=== PATIENT | male | born 1995 | race Caucasian/White ===

== ENCOUNTER 2020-05-29 20:52 | Emergency (ER) | payer OTHER ==
[2020-05-29] MEDS ORDERED: Diphtheria,Pertussis(Acell),Tetanus Vaccine 0.5 ML Syringe IM ONE (21:20)
[2020-05-29] MEDS ORDERED: Cephalexin 500 MG Cap PO ONE (21:29)
[2020-05-29] MEDS ORDERED: Ibuprofen 600 MG Tab PO ONE (21:29)
[2020-05-29] MEDS ORDERED: traMADol 50 MG Tab PO ONE (21:29)
--- NOTE | 2020-05-29 21:40 | CR ---
Indication: Pain, trauma Technique: Three views left ring finger Comparison: None Findings: There is a displaced and severely comminuted fracture of the distal tuft of the left ring finger distal phalanx seated soft tissue swelling. No intra-articular involvement. Impression: Crush injury to the distal tuft of the ring finger distal phalanx with displaced and severely comminuted fracture. Dictated by Eric Alcazar MD @ May 29 2020 9:38PM Signed by Dr. Eric Alcazar @ May 29 2020 9:39PM
--- NOTE | 2020-05-29 22:04 | EDM.PDOC ---
ED HPI GENERAL MEDICAL PROBLEM - General Chief Complaint: Upper Extremity Injury/Pain Stated Complaint: LT HAND INJURY Time Seen by Provider: 05/29/20 21:02 - History of Present Illness INITIAL COMMENTS - FREE TEXT/NARRATIVE: HISTORY AND PHYSICAL: History of present illness: This is a 24-year-old gentleman who presents ER today secondary to a crush injury to his left ring finger while he was at work. Patient is right-hand do minant. Patient's tetanus status is not up-to-date. Patient denies any other symptomatology or trauma. Patient reports his pain is restricted to the distal phalanx of his left ring finger. Patient denies any history of hypertension, diabetes, liver, lung, kidney problems. Patient denies any tobacco alcohol or drugs. Patient has allergy to penicillin. Review of systems: As per history of present illness and below otherwise all systems reviewed and negative. Past medical history: As per history of present illness and as reviewed below otherwise noncontributory. Surgical history: As per history of present illness and as reviewed below otherwise noncontributory. Social history: No reported history of drug or alcohol abuse. Family history: As per history of present illness and as reviewed below otherwise noncontributory. Physical exam: Constitutional: Patient is oriented to person, place, and time. Appears well- developed and well-nourished. No distress. HEENT: Moist mucous membranes Head: Normocephalic and atraumatic Eyes: Right eye exhibits no discharge. Left eye exhibits no discharge. No scleral icterus Neck: Normal range of motion. No tracheal deviation present. Cardiovascular: Normal rate and regular rhythm. Pulmonary: Effort normal, no respiratory distress. Abdominal: No distention Musculoskeletal: Normal range of motion Neurologic: Alert and oriented to person, place and time. Skin: Payne, warm and dry. Psychiatric: Normal mood and affect. Behavior is normal. Judgment and thought content normal. Nursing note and vital signs have been reviewed Patient's ER physical exam is significant for a laceration through his distal phalanx of his left ring finger that appears to involve the nailbed. Patient's nailbed appears to be mobile. Patient has tenderness and crepitance to the bone at his distal tuft. Patient is otherwise neurovascularly intact. Patient has isolated flexion and extension of his distal phalanx. Upon partial removal of his fingernail, a 2 cm laceration was identified horizontally through the nailbed. This patient was seen and evaluated during the 2019 SARS-CoV-2 novel coronavirus pandemic period. Community viral transmission is ongoing at time of this encounter and the emergency department is operating under pandemic response procedures. Diagnostics: X-ray left ring finger: There is a displaced and severely comminuted fracture of the distal tuft of the left ring finger distal phalanx seated soft tissue swelling. No intra-articular involvement. Therapeutics: Tdap 0.5 IM Ibuprofen 600 mg p.o. Ultram 50 mg p.o. Keflex 500 mg p.o. Sutured in the ED. Please see suture note Case discussed with Dr. Kapadia from orthopedics and he is agreed to assist us with outpatient follow-up with this patient. Assessment and plan: This is a 24-year-old gentleman who presents ER today with a laceration to his left ring finger with a open comminuted fracture of the distal tuft. Wound was sutured here in the ED. Patient will need a wound check in [address] Kapadia. Sutures will need to come out in 7 to 10 days. Patient be placed in aluminum foam splint for immobilization. Patient be discharged home with ibuprofen and Ultram for pain. Patient was given a prescription for Keflex 500 mg 3 times daily for 5 days. DME note: A AlumaFoam finger splint is being applied to patient's left ring finger secondary to fracture of the distal tuft. The splint will assist with immobilization to help with rapid and appropriate healing of the fracture. Reassessment at the time of disposition demonstrates that the patient is in no acute distress. The patient has remained stable throughout the entire ED visit and is without objective evidence for acute process requiring urgent intervention or hospitalization. The patient is stable for discharge, counseling is provided as documented above, discussed symptomatic treatment and specific conditions for return. I have spoken with the patient/caregiver and discussed todays findings, in addition to providing specific details for the plan of care. Questions are answered and there is agreement with the plan. Definitive disposition and diagnosis as appropriate pending reevaluation and review of above. L index finger Pain Score (Numeric/FACES): 5 - Related Data Allergies Allergy/AdvReac Type Severity Reaction Status Date / Time Penicillins Allergy Other Verified 05/29/20 21:07 Home Meds: Home Meds Ibuprofen 600 mg PO Q6HR PRN #30 tablet 05/29/20 [Rx] cephALEXin [Keflex] 500 mg PO Q8H #15 cap 05/29/20 [Rx] traMADol [Ultram] 50 mg PO Q6H PRN #12 tab 05/29/20 [Rx] Past Medical History Other Genitourinary History: cysts on kidneys - Infectious Disease History Infectious Disease History: Reports: Chicken Pox Social & Family History - Family History Family Medical History: No Pertinent Family History - Caffeine Use Caffeine Use: Reports: Soda - Recreational Drug Use Recreational Drug Use: No Review of Systems - Review of Systems Review Of Systems: See Below ED EXAM, GENERAL - Physical Exam Exam: See Below ED TRAUMA EXTREMITY PROCEDURES - Laceration/Wound Repair Left Digit - 4th (Ring) Lac/Wound Length In cm: 4 Appearance: Irregular Distal NVT: Neuro & Vascular Intact Anesthetic Type: Local Local Anesthesia - Lidocaine (Xylocaine): 1% Plain Local Anesthetic Volume: 2cc Skin Prep: Chlorhexidine (Hibiciens), Saline Saline Irrigation (cc's): 1,000 Exploration/Debridement/Repair: Wound Explored, In a Bloodless Field, Explored to Base, Minimal Debridement, No Foreign Material Found, Wound Margins Revised Closed With: Sutures Suture Size: 4-0 # of Sutures: 5 Suture Type: Prolene, Interrupted, Simple Progress/Comments: The distal aspect of the fingernail was removed however the proximal aspect into the cuticle was maintained. The laceration to the nailbed was visualized and sutures were placed through the fingernail and into the nailbed. Course - Vital Signs Last Recorded V/S: Last Vital Signs Temp 98.5 F 05/29/20 21:04 Pulse 70 05/29/20 21:04 Resp 18 05/29/20 21:04 BP 150/87 H 05/29/20 21:04 Pulse Ox 99 05/29/20 21:04 - Orders/Labs/Meds Orders: Active Orders 24 hr Category Date Time Status Vaccines to be Administered [RC] PER UNIT ROUTINE Care 05/29/20 21:20 Active Meds: Medications Discontinued Medications Generic Name Dose Route Start Last Admin Trade Name Freq PRN Reason Stop Dose Admin Cephalexin 500 mg 05/29/20 21:29 05/29/20 21:38 Keflex PO 05/29/20 21:30 500 mg ONETIME ONE Administration Diphtheria/Tetanus/Acell Pertussis 0.5 ml 05/29/20 21:20 05/29/20 21:26 Boostrix IM 05/29/20 21:21 0.5 ml .ONCE ONE Administration Ibuprofen 600 mg 05/29/20 21:29 05/29/20 21:38 Motrin PO 05/29/20 21:30 600 mg ONETIME ONE Administration Lidocaine HCl 5 ml 05/29/20 21:29 05/29/20 21:39 Xylocaine-Mpf 1% INJECT 05/29/20 21:30 5 ml ONETIME ONE Administration Tramadol HCl 50 mg 05/29/20 21:29 05/29/20 21:38 Ultram PO 05/29/20 21:30 50 mg ONETIME ONE Administration Departure - Departure Time of Disposition: 22:04 Disposition: Home, Self-Care 01 Condition: Good Clinical Impression: Open fracture of tuft of distal phalanx of finger Nailbed laceration, finger Qualifiers: Encounter type: initial encounter Qualified Code(s): S61.319A - Laceration without foreign body of unspecified finger with damage to nail, initial encounter - Discharge Information Instructions: Laceration Care, Adult, Finger Fracture, Adult, [id number] Referrals: Davy Blackwood MD [Primary Care Provider] - Additional Instructions: You were seen and evaluated in the ER today secondary to a fracture and laceration of your left ring finger at the nail bed. Your laceration has been sutured in the ED. You will need to have a wound check in 2 days and sutures will be need to be removed in 7 to 10 days. We have talked to Dr. Kapadia our orthopedic surgeon on-call and he will assist with care of the fracture element. You may return to the ER for assistance with removal of your sutures in 7 to 10 days. You were placed in an aluminum foam finger splint that should remain on. This will help with healing of the fracture as well as sutures. You will be given a prescription for Keflex 500 mg 3 times a day for 5 days, ibuprofen and Ultram for pain. You have received a tetanus shot today in the ED. [facility] [address], [address] [place] [address] The following information is given to patients seen in the emergency department who are being discharged to home. This information is to outline your options for follow-up care. We provide all patients seen in our emergency department with a follow-up referral. The need for follow-up, as well as the timing and circumstances, are variable depending upon the specifics of your emergency department visit. If you don't have a primary care physician on staff, we will provide you with a referral. We always advise you to contact your personal physician following an emergency department visit to inform them of the circumstance of the visit and for follow-up with them and/or the need for any referrals to a consulting specialist. The emergency department will also refer you to a specialist when appropriate. This referral assures that you have the opportunity for follow-up care with a specialist. All of these measure are taken in an effort to provide you with optimal care, which includes your follow-up. Under all circumstances we always encourage you to contact your private physician who remains a resource for coordinating your care. When calling for follow-up care, please make the office aware that this follow-up is from your recent emergency room visit. If for any reason you are refused follow-up, please contact the [facility] Emergency Department at and asked to speak to the emergency department charge nurse. [facility] [address] [place] [address] [place] [address] Sepsis Event Note (ED) - Evaluation Sepsis Screening Result: No Definite Risk - Focused Exam Vital Signs: Vital Signs Temp Pulse Resp BP Pulse Ox 05/29/20 21:04 98.5 F 70 18 150/87 H 99 - My Orders Last 24 Hours: My Active Orders 05/29/20 21:20 Vaccines to be Administered [RC] PER UNIT ROUTINE - Assessment/Plan Last 24 Hours: My Active Orders 05/29/20 21:20 Vaccines to be Administered [RC] PER UNIT ROUTINE
[2020-05-29] MEDS ORDERED: Bacitracin Oint 1 GM U/D Packet TOP ONE (22:13)
== END 2020-05-29 22:28 | disposition home or self-care (01) ==
LOC: MW.ED 20:52
DX: S62.635B Displaced fracture of distal phalanx of left ring finger, initial encounter for open fracture (principal); Z88.0 Allergy status to penicillin; Z23 Encounter for immunization; X58.XXXA Exposure to other specified factors, initial encounter; Y99.0 Civilian activity done for income or pay
CPT/HCPCS: 11760; 73140; 90471; 99283; A9270; J2001

== ENCOUNTER 2022-09-05 16:50 | Emergency (ER) | payer BC ==
[2022-09-05 17:48] LABS: CARBON DIOXIDE,CO2 29.6 mmol/L (21.0-32.0); POTASSIUM,K 3.6 mmol/L (3.5-5.1)
== END 2022-09-05 19:16 | disposition home or self-care (01) ==
LOC: MW.ED 16:50
DX: R10.31 Right lower quadrant pain (principal); R10.33 Periumbilical pain; Z88.0 Allergy status to penicillin
CPT/HCPCS: 36415; 80053; 85025; 99283; 99284